=== PATIENT | female | born 1980 | race Two or more races ===

== ENCOUNTER 2019-07-26 08:03 | Outpatient (CLI) | payer OTHER | END 2019-07-26 08:12 | disposition home or self-care (01) | LOC: MAMO-SONO 08:03 | DX: Z12.31 Encounter for screening mammogram for malignant neoplasm of breast (principal); Z87.898 Personal history of other specified conditions; N93.8 Other specified abnormal uterine and vaginal bleeding; N64.89 Other specified disorders of breast ==